=== PATIENT | male | born 1995 | race Two or more races ===

== ENCOUNTER 2019-10-21 18:59 | Emergency (ER) | payer OTHER ==
[~2019-10-21] VITALS: Ht 185.4 cm; Wt 74.8 kg
[2019-10-21 19:14] VITALS: BP 122/83
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
[2019-10-21] MEDS ORDERED: IBU800 MG PO (20:11)
[2019-10-21] MEDS ORDERED: ACETAMINOPHEN-1 EAC1 ORAL (20:11)
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
[2019-10-21 20:45] VITALS: BP 128/84
--- NOTE | 2019-10-21 20:45 | NUR ---
ED Nurse Note: Pt cleared by health care Provider for discharge. DC instructions/prescription was given and explained to pt and verbalized understanding of teachings. Instructed pt to follow up with primary care physican within one week. All medical deviecs such as ID band removed. Pt is AAO x4, ambulatory and left with all personal belongings. RT thumb spika splint applied; and provided with sling. RACHANA taught; pt understood teaching. All safety measures met; will continue to monitor.
== END 2019-10-21 20:45 | disposition home or self-care (01) ==
LOC: EMR 19:16
DX: S62.201A Unspecified fracture of first metacarpal bone, right hand, initial encounter for closed fracture (principal); Y93.71 Activity, boxing; Y92.9 Unspecified place or not applicable
CPT/HCPCS: 29125; 99283